=== PATIENT | female | born 1995 | race Caucasian/White ===

== ENCOUNTER → 2024-03-11 09:47 | Outpatient (REF) | payer OTHER, SELFPAY | LOC: RAD 09:47 | PROVIDERS: ATTENDING PHYSICIAN Obstetrics & Gynecology | DX: O26.899 Other specified pregnancy related conditions, unspecified trimester (principal) | CPT/HCPCS: 76801 ==

== ENCOUNTER → 2024-05-26 15:09 | Outpatient (REF) | payer OTHER, SELFPAY | LOC: PNTC 15:09 | PROVIDERS: ATTENDING PHYSICIAN Obstetrics & Gynecology | DX: Z36.0 Encounter for antenatal screening for chromosomal anomalies (principal) | CPT/HCPCS: 76805 ==

== ENCOUNTER → 2024-09-29 16:47 | Outpatient (REF) | payer OTHER, SELFPAY | LOC: PNTC 16:47 | PROVIDERS: ATTENDING PHYSICIAN Obstetrics & Gynecology | DX: O36.8190 Decreased fetal movements, unspecified trimester, not applicable or unspecified (principal) | CPT/HCPCS: 59025; 76815 ==

== ENCOUNTER 2024-10-09 21:02 | Inpatient (IN) | payer OTHER, SELFPAY ==
[2024-10-09 21:15] VITALS: BP 142/96; BMI 27.1
[2024-10-09] MEDS: LR 1000 IV ×2 (21:44→23:57)
[2024-10-09 21:45] LABS: % Basophils 0.3 % (0-2); % Eosinophils 0.5 % (0-6); % Immature Granulocytes 0.4 % (0-0.5); % Lymphocytes 28.5 % (20.5-51.1); % Monocytes 6.2 % (1.7-9.3); % Neutrophils 64.1 % (42.2-75.2); Absolute Eosinophils 0.1 10^3/uL (0-0.7); Absolute Lymphocytes 2.8 10^3/uL (1.2-3.4); Absolute Monocytes 0.6 10^3/uL (0.1-0.6); Absolute Neutrophils 6.2 10^3/uL (1.4-6.5); Hematocrit 35.1 % (37.0-47.0); Hemoglobin 11.9 g/dL (12.0-16.0); Mean Corp Hgb Conc. 33.9 g/dL (33.0-37.0); Mean Corpuscular Hgb 30.4 pg (27.0-31.0); Mean Corpuscular Volume 89.8 fL (81.0-99.0); Mean Platelet Volume 12.7 fL (7.4-10.4); Nucleated Red Blood Cells % 0 %; Platelet Count 111 10^3/uL (130-400); Red Blood Cell Count 3.91 10^6/uL (4.20-5.40); Red Cell Dist. Width 13.1 % (11.5-14.5); White Blood Cell Count 9.7 10^3/uL (4.8-10.8)
[2024-10-09 22:54] LABS: ALT (SGPT) 20 U/L (0-35); AST (SGOT) 31 U/L (14-36); Albumin 3.6 g/dl (3.5-5.0); Alkaline Phosphatase 205 U/L (38-126); Blood Urea Nitrogen 11 mg/dl (7-17); Calcium 9.2 mg/dl (8.4-10.2); Carbon Dioxide 16 mmol/L (22-30); Chloride 105 mmol/L (98-107); Estimated Creatinine Clearance 95 ml/min; Glucose 137 mg/dl (70-99); Potassium 3.8 mmol/L (3.5-5.1); Sodium 133 mmol/L (135-145); Total Bilirubin 0.6 mg/dl (0.2-1.3); Total Protein 6.3 g/dl (6.3-8.2); eGFR > 60.00
[2024-10-09] MEDS: FENTANYL/BUPIVACAINE 100 EPIDURAL (23:40)
[2024-10-09] MEDS: SUBLIMAZE 100 MCG EPIDURAL (23:40)
[2024-10-10] MEDS: LR 1000 IV (03:45)
[2024-10-10 05:22] LABS: Cord ABG Comment CORD BLOOD
[2024-10-10 05:24] LABS: B.E. Cord ABG -9.9 mMOL/L; HCO3 Cord ABG 17.6 mmol/L; O2 Saturation % Cord ABG 46.8 %; PCO2 Cord ABG 43 mmHg; PO2 Cord ABG 24 mmHg; pH Cord ABG 7.22
[2024-10-10 05:27] LABS: HCO3 Cord ABG 17.6 mmol/L; O2 Saturation % Cord ABG 47.1 %; PCO2 Cord ABG 58 mmHg; PO2 Cord ABG 28 mmHg; pH Cord ABG 7.09
[2024-10-10] MEDS: PITOCIN 30 UNITS/NSS 500 ML IV (06:33)
[2024-10-10] MEDS: MOTRIN 600 MG PO ×3 (08:26→21:28)
[2024-10-10] MEDS: PRENATAL PLUS 1 TABLET PO (08:26)
[2024-10-10] MEDS: TYLENOL 650 MG PO (16:09)
[2024-10-11 05:40] LABS: Hematocrit 30.1 % (37.0-47.0); Hemoglobin 10.8 g/dL (12.0-16.0); Mean Corp Hgb Conc. 35.9 g/dL (33.0-37.0); Mean Corpuscular Hgb 31.9 pg (27.0-31.0); Mean Corpuscular Volume 88.8 fL (81.0-99.0); Mean Platelet Volume 12.1 fL (7.4-10.4); Platelet Count 90 10^3/uL (130-400); Red Blood Cell Count 3.39 10^6/uL (4.20-5.40); Red Cell Dist. Width 13.1 % (11.5-14.5); White Blood Cell Count 14.3 10^3/uL (4.8-10.8)
[2024-10-11 06:21] LABS: ALT (SGPT) 23 U/L (0-35); AST (SGOT) 59 U/L (14-36); Albumin 2.6 g/dl (3.5-5.0); Alkaline Phosphatase 141 U/L (38-126); Blood Urea Nitrogen 11 mg/dl (7-17); Calcium 8.6 mg/dl (8.4-10.2); Carbon Dioxide 22 mmol/L (22-30); Chloride 107 mmol/L (98-107); Estimated Creatinine Clearance 95 ml/min; Glucose 73 mg/dl (70-99); Potassium 4.2 mmol/L (3.5-5.1); Sodium 134 mmol/L (135-145); Total Bilirubin 0.5 mg/dl (0.2-1.3); Total Protein 4.9 g/dl (6.3-8.2); eGFR > 60.00
[2024-10-11] MEDS: MAGNESIUM SULFATE 100 IV (07:58)
[2024-10-11] MEDS: LR 1000 IV ×2 (07:59→20:45)
[2024-10-11] MEDS: MAGNESIUM SULFATE 40 GRAM 1000 IV (08:20)
[2024-10-11] MEDS: PRENATAL PLUS PO (08:20)
[2024-10-11 12:12] LABS: Hematocrit 34.6 % (37.0-47.0); Hemoglobin 11.7 g/dL (12.0-16.0); Mean Corp Hgb Conc. 33.8 g/dL (33.0-37.0); Mean Corpuscular Hgb 30.6 pg (27.0-31.0); Mean Corpuscular Volume 90.6 fL (81.0-99.0); Mean Platelet Volume 11.6 fL (7.4-10.4); Platelet Count 111 10^3/uL (130-400); Red Blood Cell Count 3.82 10^6/uL (4.20-5.40); Red Cell Dist. Width 13.4 % (11.5-14.5)
[2024-10-11 12:25] LABS: ALT (SGPT) 28 U/L (0-35); AST (SGOT) 67 U/L (14-36); Albumin 3.1 g/dl (3.5-5.0); Alkaline Phosphatase 161 U/L (38-126); Blood Urea Nitrogen 8 mg/dl (7-17); Calcium 7.7 mg/dl (8.4-10.2); Carbon Dioxide 23 mmol/L (22-30); Chloride 104 mmol/L (98-107); Estimated Creatinine Clearance 109 ml/min; Glucose 77 mg/dl (70-99); Sodium 134 mmol/L (135-145); Total Bilirubin 0.5 mg/dl (0.2-1.3); Total Protein 5.7 g/dl (6.3-8.2); eGFR > 60.00
[2024-10-11] MEDS: MOTRIN 600 MG PO ×2 (14:26→20:48)
[2024-10-12] MEDS: MAGNESIUM SULFATE 40 GRAM 1000 IV (02:01)
[2024-10-12] MEDS: MOTRIN 600 MG PO (02:10)
[2024-10-12 04:18] LABS: ALT (SGPT) 24 U/L (0-35); AST (SGOT) 47 U/L (14-36); Albumin 2.8 g/dl (3.5-5.0); Alkaline Phosphatase 152 U/L (38-126); Blood Urea Nitrogen 6 mg/dl (7-17); Calcium 5.4 mg/dl (8.4-10.2); Carbon Dioxide 23 mmol/L (22-30); Chloride 106 mmol/L (98-107); Estimated Creatinine Clearance 109 ml/min; Glucose 87 mg/dl (70-99); Magnesium 8.7 mg/dl (1.6-2.3); Potassium 3.9 mmol/L (3.5-5.1); Sodium 132 mmol/L (135-145); Total Bilirubin 0.4 mg/dl (0.2-1.3); Total Protein 5.4 g/dl (6.3-8.2); eGFR > 60.00
[2024-10-12] MEDS: MYLICON 80 MG PO (04:30)
[2024-10-12] MEDS: TYLENOL 650 MG PO (04:30)
[2024-10-12 04:34] LABS: Hematocrit 31.1 % (37.0-47.0); Hemoglobin 11.2 g/dL (12.0-16.0); Mean Corpuscular Volume 88.9 fL (81.0-99.0); Mean Platelet Volume 11.6 fL (7.4-10.4); Platelet Count 120 10^3/uL (130-400); Red Cell Dist. Width 13.2 % (11.5-14.5); White Blood Cell Count 12.3 10^3/uL (4.8-10.8)
[2024-10-12] MEDS: PRENATAL PLUS 1 TABLET PO (07:26)
[2024-10-13 05:59] LABS: ALT (SGPT) 33 U/L (0-35); AST (SGOT) 57 U/L (14-36)
[2024-10-13] MEDS: PRENATAL PLUS 1 TABLET PO (08:04)
[2024-10-13 10:50] LABS: Syphilis/T. pallidum Ab Reflex Negative (Negative)
== END 2024-10-13 18:51 | disposition home or self-care (01) | DRG 806 ==
LOC: LDRP 21:02
PROVIDERS: Obstetrics & Gynecology; ADMITTING PHYSICIAN Student in an Organized Health Care Education/Training Program
PROC: 10D07Z6 Extraction of Products of Conception, Vacuum, Via Natural or Artificial Opening (ICD-10-PCS; 2024-10-10)
PROC: 0KQM0ZZ Repair Perineum Muscle, Open Approach (ICD-10-PCS; 2024-10-10)
DX: O14.14 Severe pre-eclampsia complicating childbirth (principal); O99.12 Other diseases of the blood and blood-forming organs and certain disorders involving the immune mechanism complicating childbirth; Z37.0 Single live birth; O76 Abnormality in fetal heart rate and rhythm complicating labor and delivery; D69.6 Thrombocytopenia, unspecified; O70.1 Second degree perineal laceration during delivery; Z3A.39 39 weeks gestation of pregnancy
CPT/HCPCS: 88307; 36415; 80053; 82803; 83735; 84450; 84460; 85025; 85027; 86780; 86850; 86900; 86901